=== PATIENT | male | born 1945 | race Caucasian/White ===

== ENCOUNTER 2018-11-05 17:08 | Emergency (ER) | payer MEDICARE ==
[2018-11-05] MEDS ORDERED: Fentanyl 100 MCG/2 ML VIAL ONE (17:21)
[2018-11-05] MEDS ORDERED: Adacel (T-DAP) 0.5 ML SYRINGE ONE (17:57)
[2018-11-05] MEDS ORDERED: Cephalexin 500 MG CAP ONE ×2 (17:59→18:00)
== END 2018-11-05 18:05 | disposition home or self-care (01) ==
LOC: BURERS 17:08
DX: S51.812A Laceration without foreign body of left forearm, initial encounter (principal); I10 Essential (primary) hypertension; W26.8XXA Contact with other sharp object(s), not elsewhere classified, initial encounter
CPT/HCPCS: 12032; 90471; 90715; 96374; J3010